=== PATIENT | male | born 1975 | race Caucasian/White ===

== ENCOUNTER → 2018-01-19 | Outpatient (CLI) | payer BC ==
[2015-10-16 06:40] VITALS: BP 102/69
[~2018-01-19] MED LIST: CLINDAMYCIN 300MG PO
[2018-01-19 11:00] LABS: BASO # 0.1 (0.02-0.10); EOS # 0.1 (0.04-0.40); EOS % 2.1 % (0.0-4.0); HEMATOCRIT 48.2 % (42.0-52.0); HEMOGLOBIN 15.7 g/dL (13.5-18.0); LYMPH# 1.7 (1.50-4.00); MEAN CELL VOLUME 96 fl (78-100); MEAN CORPUSCULAR HEMOGLOBIN 31 pg (27-31); MEAN CORPUSCULAR HGB CONC 33 g/dL (33-37); MEAN PLATELET VOLUME 10.3 fl (7.4-10.4); MONO # 0.5 (0.20-0.80); NEU # 3.9 (1.40-6.50); PLATELET COUNT 258 K/mm3 (130-400); RED BLOOD COUNT 5.04 M/mm3 (4.20-5.60); RED CELL DISTRIBUTION WIDTH 12.6 % (11.5-14.5); WHITE BLOOD COUNT 6.2 K/mm3 (4.8-10.8)
[2018-01-19 11:25] LABS: ALBUMIN 4.5 g/dL (3.5-5.0); BUN/CREATININE RATIO 21.2 (6.0-26.0); CALCIUM 9.3 mg/dL (8.4-10.2); POTASSIUM 4.6 mmol/L (3.6-5.0); TOTAL BILIRUBIN 0.6 mg/dL (0.2-1.3); TOTAL PROTEIN 7.6 g/dL (6.3-8.2)
== END ==
LOC: LAB 10:41
PROVIDERS: Family Medicine
DX: R07.89 Other chest pain (principal); M54.6 Pain in thoracic spine; R13.10 Dysphagia, unspecified; J98.4 Other disorders of lung

== ENCOUNTER → 2022-10-04 | Outpatient (CLI) | payer BC | LOC: LAB 12:20 | DX: J02.9 Acute pharyngitis, unspecified (principal) ==